=== PATIENT | male | born 1935 | race Caucasian/White ===

== ENCOUNTER 2016-10-14 14:41 | Inpatient (IN) | payer OTHER ==
[~2016-10-14] VITALS: Ht 170.1 cm; Wt 74.4 kg
[~2016-10-14 14:41] MED LIST: ASPIRIN81 M1 PO; CIPRO500 MG PO; COZAAR25 MG PO; DRISDOL50000 IU PO; FLOMAX0.4 MG PO; METFORMIN HCL500 MG PO; MOTRIN800 MG PO; NORCO 5-325 TA1 EACH PO; NORVASC10 MG PO; PRAVACHOL80 MG PO; SYNTHROID,LEVO75 MCG PO; TYLENOL W/CODEI1 TA4 PO; XALATAN 0.005%2.5 ML INTRAOC; ZOFRAN ODT4 MG PO
[2016-10-14] MEDS ORDERED: LATANOPROST2.5 ML OP (14:46)
[2016-10-14] MEDS ORDERED: ZETIA10 MG PO (14:46)
[2016-10-14] MEDS ORDERED: ASPIR LOW81 MG PO (14:46)
[2016-10-14] MEDS ORDERED: TAMSULOSIN HCL0.4 MG PO (14:47)
[2016-10-14] MEDS ORDERED: LEVOTHYROXIN0.075 M1 PO (14:47)
[2016-10-14] MEDS ORDERED: VITAMIN D50000 I3 PO (14:47)
[2016-10-14] MEDS ORDERED: LOSARTAN POTASS25 M1 PO (14:48)
[2016-10-14] MEDS ORDERED: AMLODIPINE BESY1 TAB PO (14:48)
[2016-10-14 14:50] VITALS: BP 130/54
[2016-10-14 15:11] LABS: BASO % 0.3 % (0.0-1.0); EOS # 0.2 10*3/uL (0.0-0.4); EOS % 2.9 % (1.0-4.0); HEMATOCRIT 38.1 % (42.0-52.0); HEMOGLOBIN 12.7 g/dl (14.0-18.0); LYMPH # 2.2 10*3/uL (1.3-4.4); LYMPH % 33.9 % (27.0-41.0); MEAN CELL VOLUME 94.8 fl (80.0-94.0); MEAN CORPUSCULAR HGB 31.6 pg (27.0-31.0); MEAN CORPUSCULAR HGB CONC 33.3 g/dl (33.0-37.0); MEAN PLATELET VOLUME 10.1 fl (9.6-12.3); MONO # 0.6 10*3/uL (0.1-1.0); MONO % 8.6 % (3.0-9.0); NEUT # 3.5 10*3/uL (2.3-7.9); NEUT % 54.1 % (47.0-73.0); PLATELET COUNT AUTOMATED 222 10*3/uL (130-400); RED BLOOD COUNT 4.02 10*6/uL (4.50-5.90); RED CELL DISTRI WIDTH 12.6 % (0-14.5); WHITE BLOOD COUNT 6.5 10*3/uL (4.8-10.8)
[2016-10-14 15:19] LABS: INTERNATIONAL NORM RATIO 0.9 (2.0-3.5); PROTHROMBIN TIME 9.9 SECONDS (9.0-12.4)
[2016-10-14 15:26] LABS: ALBUMIN 3.6 gm/dl (3.1-4.5); ALKALINE PHOSPHATASE 61 U/L (45-117); BILIRUBIN, TOTAL 0.8 mg/dl (0.2-1.0); BUN 15 mg/dl (7-24); C-REACTIVE PROTEIN < 0.29 MG/DL (0-0.3); CARBON DIOXIDE 27 mmol/L (21-32); CHLORIDE 109 mmol/L (98-107); CKMB 1.1 ng/ml (0.5-3.6); CPK 44 U/L (39-308); EST GLOM FILT AFRICAN AMERICAN > 60 ml/min; GLUCOSE 175 mg/dL (65-99); MAGNESIUM 1.9 mg/dL (1.5-2.1); POTASSIUM 4.6 mmol/L (3.5-5.1); SGOT/AST 16 IU/L (3-35); SGPT/ALT 21 U/L (12-78); SODIUM 145 mmol/L (136-145); TOTAL PROTEIN 7.1 gm/dL (6.4-8.2); TROPONIN I < 0.015 ng/ml (<0.045)
[2016-10-14 15:40] LABS: BILIRUBIN NEGATIVE (NEGATIVE); BLOOD NEGATIVE (NEGATIVE); CLARITY SL CLOUDY (CLEAR); COLOR YELLOW (YELLOW); GLUCOSE NEGATIVE (NEGATIVE); KETONE NEGATIVE (NEGATIVE); LEUKO ESTERASE 1+ (NEGATIVE); NITRITE NEGATIVE (NEGATIVE); PROTEIN TRACE (NEGATIVE)
[2016-10-14 15:54] LABS: CALCIUM OXALATE CRYSTALS 1+
[2016-10-14 15:55] LABS: BACTERIA TRACE; RBC 0-2 rbc/hpf (0-2); URINE REFLEX COMMENT YES (NO); YEAST 1+
[2016-10-14 16:49] VITALS: BP 138/56
[2016-10-14 17:08] LABS: LA>2 REFLEX 2 HR DRAW NOW
[2016-10-14 18:28] VITALS: BP 164/70; BP 184/70
[2016-10-14 20:00] VITALS: BP 158/70
[2016-10-14 22:00] VITALS: BP 146/55
[2016-10-15] VITALS: BP 141/56
[2016-10-15 04:07] LABS: BASO % 0.7 % (0.0-1.0); EOS # 0.4 10*3/uL (0.0-0.4); EOS % 6.1 % (1.0-4.0); HEMATOCRIT 41.4 % (42.0-52.0); HEMOGLOBIN 13.6 g/dl (14.0-18.0); LYMPH # 2.6 10*3/uL (1.3-4.4); MEAN CELL VOLUME 95.6 fl (80.0-94.0); MEAN CORPUSCULAR HGB 31.4 pg (27.0-31.0); MEAN CORPUSCULAR HGB CONC 32.9 g/dl (33.0-37.0); MEAN PLATELET VOLUME 10.2 fl (9.6-12.3); MONO # 0.6 10*3/uL (0.1-1.0); NEUT # 2.3 10*3/uL (2.3-7.9); PLATELET COUNT AUTOMATED 222 10*3/uL (130-400); RED BLOOD COUNT 4.33 10*6/uL (4.50-5.90); RED CELL DISTRI WIDTH 12.6 % (0-14.5); WHITE BLOOD COUNT 5.9 10*3/uL (4.8-10.8)
[2016-10-15 04:20] LABS: BUN 13 mg/dl (7-24); CARBON DIOXIDE 28 mmol/L (21-32); CHLORIDE 108 mmol/L (98-107); EST GLOM FILT AFRICAN AMERICAN > 60 ml/min; GLUCOSE 131 mg/dL (65-99); MAGNESIUM 2.1 mg/dL (1.5-2.1); SODIUM 143 mmol/L (136-145)
[2016-10-15 04:25] LABS: CHOLESTEROL 216 mg/dL (<200); FREE T4 1.04 ng/dl (0.76-1.46); HDL CHOLESTEROL 64 mg/dl (40-60); LDL CHOLESTEROL 127 mg/dL (9-159); TRIGLYCERIDES 125 mg/dl (<150); VLDL CHOLESTEROL 25 mg/dL (6-40)
[2016-10-15 04:27] LABS: HEMOGLOBIN A1c 6.8 % (4.8-5.6)
[2016-10-15 07:52] LABS: VITAMIN D, 25-HYDROXY 88.1 ng/mL (30-100)
[2016-10-15 07:53] LABS: FOLIC ACID 15.34 ng/mL (>5.38)
[2016-10-15 08:00] VITALS: BP 146/68
== END 2016-10-15 11:04 | disposition home or self-care (01) | DRG 312 ==
LOC: ED 14:41 → EDHOLD 17:18 → 4E 17:45
PROVIDERS: Emergency Medicine; Internal Medicine Hospice and Palliative Medicine
DX: R55 Syncope and collapse (principal); E87.2 Acidosis; E11.65 Type 2 diabetes mellitus with hyperglycemia; D53.9 Nutritional anemia, unspecified; I25.810 Atherosclerosis of coronary artery bypass graft(s) without angina pectoris; I10 Essential (primary) hypertension; E78.5 Hyperlipidemia, unspecified; E03.9 Hypothyroidism, unspecified; H91.92 Unspecified hearing loss, left ear; H40.9 Unspecified glaucoma; R42 Dizziness and giddiness; Z88.1 Allergy status to other antibiotic agents; Z88.0 Allergy status to penicillin; Z88.8 Allergy status to other drugs, medicaments and biological substances; Z88.6 Allergy status to analgesic agent; Z91.030 Bee allergy status; Z79.82 Long term (current) use of aspirin; Z79.899 Other long term (current) drug therapy

== ENCOUNTER 2017-10-03 13:51 | Emergency (ER) | payer OTHER ==
[~2017-10-03] VITALS: Ht 170.1 cm; Wt 76.2 kg
[~2017-10-03 13:51] MED LIST changes: +AMLODIPINE BESY1 TAB PO; +ASPIR LOW81 MG PO; +LATANOPROST2.5 ML OP; +LEVOTHYROXIN0.075 M1 PO; +LOSARTAN POTASS25 M1 PO; +TAMSULOSIN HCL0.4 MG PO; +VITAMIN D50000 I3 PO; +ZETIA10 MG PO
[2017-10-03 14:37] LABS: BASO % 0.6 % (0.0-1.0); EOS # 0.2 10*3/uL (0.0-0.4); EOS % 2.9 % (1.0-4.0); HEMATOCRIT 38.2 % (42.0-52.0); LYMPH # 2.3 10*3/uL (1.3-4.4); LYMPH % 36.4 % (27.0-41.0); MEAN CELL VOLUME 93.4 fl (80.0-94.0); MEAN CORPUSCULAR HGB 31.8 pg (27.0-31.0); MEAN PLATELET VOLUME 10.3 fl (9.6-12.3); MONO # 0.7 10*3/uL (0.1-1.0); MONO % 10.7 % (3.0-9.0); NEUT # 3.1 10*3/uL (2.3-7.9); NEUT % 49.2 % (47.0-73.0); PLATELET COUNT AUTOMATED 234 10*3/uL (130-400); RED BLOOD COUNT 4.09 10*6/uL (4.50-5.90); RED CELL DISTRI WIDTH 12.4 % (0-14.5); WHITE BLOOD COUNT 6.2 10*3/uL (4.8-10.8)
[2017-10-03 14:54] LABS: ALBUMIN 3.7 gm/dl (3.1-4.5); ALKALINE PHOSPHATASE 58 U/L (45-117); BUN 20 mg/dl (7-24); CHLORIDE 107 mmol/L (98-107); CREATININE 1.23 mg/dL (0.70-1.30); SGOT/AST 12 IU/L (3-35); SGPT/ALT 20 U/L (12-78); SODIUM 139 mmol/L (136-145); TOTAL PROTEIN 7.6 gm/dL (6.4-8.2)
[2017-10-03 15:28] VITALS: BP 142/57
== END 2017-10-03 16:13 | disposition home or self-care (01) ==
LOC: ED 13:51
PROVIDERS: Emergency Medicine
DX: R42 Dizziness and giddiness (principal); I25.10 Atherosclerotic heart disease of native coronary artery without angina pectoris; I10 Essential (primary) hypertension; E78.5 Hyperlipidemia, unspecified; E03.9 Hypothyroidism, unspecified; E11.65 Type 2 diabetes mellitus with hyperglycemia; Z90.49 Acquired absence of other specified parts of digestive tract; Z98.890 Other specified postprocedural states; Z87.891 Personal history of nicotine dependence; Z95.1 Presence of aortocoronary bypass graft; Z91.030 Bee allergy status; Z88.0 Allergy status to penicillin; Z88.1 Allergy status to other antibiotic agents; Z88.5 Allergy status to narcotic agent; Z79.82 Long term (current) use of aspirin; Z79.899 Other long term (current) drug therapy